=== PATIENT | male | born 1965 | race Caucasian/White ===

== ENCOUNTER 2024-03-18 12:43 | Inpatient (IN) | payer OTHER ==
[2024-03-18 12:58] VITALS: BMI 22.1
[2024-03-18] MEDS ORDERED: diazePAM 5 MG TABLET PO PRN (15:41)
[2024-03-18] MEDS ORDERED: NALOXONE (NARCAN) HCL 4 MG/0.1 ML SPRAY NS PRN (15:44)
[2024-03-18] MEDS ORDERED: IBUPROFEN 400 MG TABLET (FP) PO PRN (15:44)
[2024-03-18] MEDS ORDERED: DICYCLOMINE HCL 10 MG CAPSULE PO PRN (15:44)
[2024-03-18] MEDS ORDERED: BENZOCAINE/MENTHOL (CHLORASEPTIC ) LOZENGE MM PRN (15:44)
[2024-03-18] MEDS ORDERED: ONDANSETRON *ODT* 4 MG TABLET SL PRN (15:44)
[2024-03-18] MEDS ORDERED: POLYETHYLENE GLYCOL (HEALTHYLAX) 3350 17 GM PACKET PO PRN (15:44)
[2024-03-18] MEDS ORDERED: METHOCARBAMOL 500 MG TABLET PO PRN (15:44)
[2024-03-18] MEDS ORDERED: MAGNESIUM HYDROX 2400MG/30ML ORAL SUSPENSION 30 ML CUP PO PRN (15:44)
[2024-03-18] MEDS ORDERED: BENZONATATE 200 MG CAPSULE PO PRN (15:44)
[2024-03-18] MEDS ORDERED: guaiFENesin 600 MG TABLET.ER (FP) PO PRN (15:44)
[2024-03-18] MEDS: metFORMIN HCL 500 MG TABLET (FP) PO SCH (17:35)
[2024-03-18] MEDS: diazePAM 5 MG TABLET PO SCH (17:36)
[2024-03-18] MEDS: THIAMINE 100 MG TABLET PO SCH (22:28)
[2024-03-18] MEDS: MELATONIN 5 MG TABLETS PO SCH (22:28)
[2024-03-18] MEDS: GABAPENTIN 300 MG CAPSULE PO SCH (22:28)
[2024-03-19] MEDS: BICTEGRAV/EMTRICIT/TENOFOV (BIKTARVY) 50-200-25 MG TABLET PO SCH (07:06)
[2024-03-19] MEDS: PRENATAL VITAMINS W/ FOLIC ACID TABLET (FP) PO SCH (09:28)
[2024-03-19] MEDS: NICOTINE 14 MG/24 HOURS TOPICAL PATCH TD SCH (09:29)
[2024-03-19] MEDS ORDERED: methaDONE HCL 10 MG TABLET PO ONE (09:32)
[2024-03-19 11:21] LABS: HEMATOCRIT 34.8 % (35.4-49); HEMOGLOBIN 11.4 GM/dL (11.7-16.9); MCH 29.6 pg (25.7-33.7); MCHC 32.6 g/dl (32.0-35.9); MEAN CELL VOLUME 90.7 fl (80-96); MEAN PLT VOLUME 8.9 fl (7.5-11.1); PLATELET COUNT 143 10^3/uL (134-434); RBC 3.84 M/mm3 (4.00-5.60); WHITE BLOOD COUNT 2.6 K/mm3 (4.0-10.0)
[2024-03-19 11:22] LABS: CHLORIDE 99 mmol/L (98-107); SODIUM 133 mmol/L (136-145)
[2024-03-19 11:24] LABS: CALCIUM 8.2 mg/dL (8.5-10.1)
[2024-03-19 11:25] LABS: ALBUMIN 2.7 g/dl (3.4-5.0); ANION GAP 5 mmol/L (4-13); BLOOD UREA NITROGEN 5.4 mg/dL (7-18); CO2 28 mmol/L (21-32); GLUCOSE,RANDOM 117 mg/dL (74-106)
[2024-03-19 11:28] LABS: CREATININE 0.4 mg/dL (0.55-1.3); SGOT/AST 304 U/L (15-37); SGPT/ALT 89 U/L (13-61)
[2024-03-19 11:30] LABS: TOT PROT 5.7 g/dl (6.4-8.2)
[2024-03-19 11:31] LABS: ALK PHOS 143 U/L (45-117)
[2024-03-19] MEDS: SUVOREXANT 10 MG TABLET PO PRN (22:28)
[2024-03-19] MEDS: hydrOXYzine PAMOATE 25 MG CAPSULE (FP) PO PRN (22:29)
[2024-03-20] MEDS: diazePAM 5 MG TABLET PO SCH (05:43)
[2024-03-20] MEDS ORDERED: methaDONE HCL 10 MG TABLET PO SCH (06:00)
[2024-03-20] MEDS: LOPERAMIDE HCL 2 MG CAPSULE PO PRN (21:42)
[2024-03-21] MEDS: diazePAM 5 MG TABLET PO SCH (05:25)
[2024-03-21 10:30] LABS: BASO % 0.6 % (0-2.0); EOS % 7.3 % (0-4.5); HEMATOCRIT 36.6 % (35.4-49); HEMOGLOBIN 11.9 GM/dL (11.7-16.9); LYMPH % 13.7 % (8-40); MCHC 32.5 g/dl (32.0-35.9); MEAN CELL VOLUME 92.2 fl (80-96); MEAN PLT VOLUME 9.1 fl (7.5-11.1); MONO % 11.2 % (3.8-10.2); NEUT % 67.2 % (42.8-82.8); PLATELET COUNT 199 10^3/uL (134-434); RBC 3.97 M/mm3 (4.00-5.60); WHITE BLOOD COUNT 4.2 K/mm3 (4.0-10.0)
[2024-03-21] MEDS: NALOXONE (NYS OPIOID OVERDOSE PROGRAM) 4 MG/0.1 ML SPRAY NS SCH (12:42)
[2024-03-21] MEDS: VITAMINS A AND D TOPICAL OINTMENT TP SCH (12:49)
[2024-03-21] MEDS: BISMUTH SUBSALICYLATE 524 MG/30 ML PO PRN (17:11)
[2024-03-22] MEDS: diazePAM 5 MG TABLET PO ONE (05:33)
[2024-03-24] MEDS: NALOXONE (NYS OPIOID OVERDOSE PROGRAM) 4 MG/0.1 ML SPRAY NS ONE (13:38)
[2024-03-24] MEDS: ACETAMINOPHEN 325 MG TABLET (FP) PO PRN (17:36)
[2024-03-24] MEDS: SUVOREXANT 10 MG TABLET PO PRN (21:21)
[2024-03-24] MEDS ORDERED: SUVOREXANT 10 MG TABLET PO PRN (22:00)
[2024-03-25] MEDS: MAG HYDROX/AL HYDROX/SIMETH 30 ML UNIT-DOSE CUP PO PRN (13:46)
[2024-03-25] MEDS: IBUPROFEN 600 MG TABLET (FP) PO PRN (21:17)
[2024-03-26 15:47] VITALS: BP 108/59; PULSE 81; RESP 18; TEMP 97.7
[2024-03-26] MEDS ORDERED: SUVOREXANT 10 MG TABLET PO PRN (22:00)
== END 2024-03-26 16:10 | disposition short-term general hospital (02) | DRG 895 ==
LOC: YASAS 12:43 → Y6N 15:10 → Y3NR 03-22 13:03 → Y3W 03-23 13:50
PROVIDERS: ADMIT Surgery; ATTEND Psychiatry & Neurology Pain Medicine
PROC: HZ42ZZZ Group Counseling for Substance Abuse Treatment, Cognitive-Behavioral (ICD-10-PCS; principal; 2024-03-18)
DX: F10.20 Alcohol dependence, uncomplicated (principal); F11.20 Opioid dependence, uncomplicated; F13.20 Sedative, hypnotic or anxiolytic dependence, uncomplicated; F14.20 Cocaine dependence, uncomplicated; F19.282 Other psychoactive substance dependence with psychoactive substance-induced sleep disorder; F19.280 Other psychoactive substance dependence with psychoactive substance-induced anxiety disorder; L03.115 Cellulitis of right lower limb; F19.24 Other psychoactive substance dependence with psychoactive substance-induced mood disorder; F17.210 Nicotine dependence, cigarettes, uncomplicated; Z21 Asymptomatic human immunodeficiency virus [HIV] infection status; G47.00 Insomnia, unspecified; G62.9 Polyneuropathy, unspecified; E11.9 Type 2 diabetes mellitus without complications; Z79.84 Long term (current) use of oral hypoglycemic drugs
CPT/HCPCS: 36415; 80053; 80305; 80307; 82962; 84450; 85025; 85027; 86780; 87811; 93005; 93010

== ENCOUNTER 2024-03-26 16:25 | Inpatient (IN) | payer OTHER ==
[2024-03-26] MEDS ORDERED: ACETAMINOPHEN INJECTION 100 ML ONE (18:03)
[2024-03-26] MEDS ORDERED: VANCOMYCIN/WATER 1250 MG 1,250 MG/250 ML BAG IVPB ONE (18:03)
[2024-03-26 18:06] LABS: BASO % 0.1 % (0-2.0); EOS % 0.8 % (0-4.5); HEMATOCRIT 33.7 % (35.4-49); HEMOGLOBIN 11.2 GM/dL (11.7-16.9); LYMPH % 7.3 % (8-40); MCH 29.7 pg (25.7-33.7); MCHC 33.3 g/dl (32.0-35.9); MEAN CELL VOLUME 89.1 fl (80-96); MEAN PLT VOLUME 8.2 fl (7.5-11.1); MONO % 8.5 % (3.8-10.2); NEUT % 83.3 % (42.8-82.8); PLATELET COUNT 195 10^3/uL (134-434); RBC 3.78 M/mm3 (4.00-5.60); RDW 15.8 % (11.9-15.9); WHITE BLOOD COUNT 8.9 K/mm3 (4.0-10.0)
[2024-03-26 18:13] LABS: INR 1.08 (0.83-1.09); PROTHROMBIN TIME (PATIENT) 12.2 SEC (9.7-13.0)
[2024-03-26] MEDS: VANCOMYCIN/WATER 1250 MG 1,250 MG/250 ML BAG IVPB ONE (18:16)
[2024-03-26] MEDS: ACETAMINOPHEN 1000 MG/100 ML BAG IVPB ONE (18:16)
[2024-03-26 18:27] LABS: BLOOD UREA NITROGEN 11.7 mg/dL (7-18); CALCIUM 8.3 mg/dL (8.5-10.1)
[2024-03-26 18:28] LABS: ALBUMIN 2.5 g/dl (3.4-5.0)
[2024-03-26 18:31] LABS: CREATININE 0.6 mg/dL (0.55-1.3)
[2024-03-26 18:32] LABS: BILIRUBIN,TOTAL 0.7 mg/dL (0.2-1)
[2024-03-26 18:40] LABS: LACTIC ACID 3.7 mmol/L (0.4-2.0)
[2024-03-26] MEDS: LACTATED RINGERS SOLUTION 1000 ML INFUS.BAG IV ONE (20:23)
[2024-03-26] MEDS ORDERED: KETOROLAC TROMETHAMINE 15 MG/ML VIAL ONE ×2 (22:24→22:28)
[2024-03-26] MEDS: KETOROLAC TROMETHAMINE 15 MG/ML VIAL IVPUSH ONE (22:30)
[2024-03-26] MEDS: SODIUM CHLORIDE 0.9% 500 ML INFUS.BAG IV ONE (22:30)
[2024-03-26] MEDS: INSULIN ASPART SLIDING SCALE (NOVOLOG) 1 VIAL SQ SCH (22:44)
[2024-03-26 23:35] VITALS: BMI 23.1
[2024-03-27] MEDS ORDERED: SUVOREXANT 10 MG TABLET PO PRN (01:25)
[2024-03-27] MEDS: PIPERACILLIN/TAZOB 3.375 GM 50 ML IVPB SCH ×2 (02:17→18:19)
[2024-03-27] MEDS: SODIUM CHLORIDE 1,000 ML IV SCH (02:17)
[2024-03-27] MEDS: ACETAMINOPHEN 1000 MG/100 ML BAG IVPB PRN (03:40)
[2024-03-27 03:53] LABS: LACTIC ACID 2.7 mmol/L (0.4-2.0)
[2024-03-27 03:54] LABS: POTASSIUM 4.3 mmol/L (3.5-5.1)
[2024-03-27 03:57] LABS: ALBUMIN 2.2 g/dl (3.4-5.0); CALCIUM 7.7 mg/dL (8.5-10.1)
[2024-03-27 03:58] LABS: BLOOD UREA NITROGEN 9.7 mg/dL (7-18)
[2024-03-27 04:01] LABS: BILIRUBIN,TOTAL 0.5 mg/dL (0.2-1); CREATININE 0.5 mg/dL (0.55-1.3); TOT PROT 5.2 g/dl (6.4-8.2)
[2024-03-27] MEDS: GABAPENTIN 300 MG CAPSULE PO SCH (05:29)
[2024-03-27] MEDS ORDERED: VANCOMYCIN 1,000 MG in DEXTROSE 5%-WATER - 250 ML IVPB SCH (08:00)
[2024-03-27] MEDS: THIAMINE 100 MG TABLET PO SCH (09:06)
[2024-03-27] MEDS: FOLIC ACID 1 MG TABLET (FP) PO SCH (09:06)
[2024-03-27] MEDS: ENOXAPARIN NA (PORCINE) 40 MG/0.4 ML DISP.SYRIN SQ SCH (09:07)
[2024-03-27] MEDS: BICTEGRAV/EMTRICIT/TENOFOV (BIKTARVY) 50-200-25 MG TABLET PO SCH (09:07)
[2024-03-27] MEDS: methaDONE HCL 40 MG DISPERSABLE TABLET PO SCH (09:17)
[2024-03-27 09:44] LABS: BASO % 0.1 % (0-2.0); EOS % 1.1 % (0-4.5); HEMATOCRIT 32.4 % (35.4-49); HEMOGLOBIN 10.9 GM/dL (11.7-16.9); LYMPH % 5.6 % (8-40); MCH 30.2 pg (25.7-33.7); MCHC 33.5 g/dl (32.0-35.9); MEAN CELL VOLUME 90.2 fl (80-96); MEAN PLT VOLUME 8.6 fl (7.5-11.1); MONO % 9.1 % (3.8-10.2); NEUT % 84.1 % (42.8-82.8); PLATELET COUNT 182 10^3/uL (134-434); RBC 3.59 M/mm3 (4.00-5.60); WHITE BLOOD COUNT 7.1 K/mm3 (4.0-10.0)
[2024-03-27 09:51] LABS: POTASSIUM 4.2 mmol/L (3.5-5.1)
[2024-03-27 09:58] LABS: ALBUMIN 2.3 g/dl (3.4-5.0); BLOOD UREA NITROGEN 8.1 mg/dL (7-18); MAGNESIUM 2.1 mg/dL (1.8-2.4)
[2024-03-27] MEDS ORDERED: VANCOMYCIN/WATER FOR INJ (PEG) 1,000 MG/200 ML BAG IVPB SCH (10:00)
[2024-03-27 10:02] LABS: CREATININE 0.5 mg/dL (0.55-1.3); PHOSPHOROUS 2.9 mg/dL (2.5-4.9)
[2024-03-27 10:03] LABS: BILIRUBIN,TOTAL 0.7 mg/dL (0.2-1); TOT PROT 5.7 g/dl (6.4-8.2)
[2024-03-27 10:20] LABS: LACTIC ACID 2.4 mmol/L (0.4-2.0)
[2024-03-27] MEDS: VANCOMYCIN/WATER FOR INJ (PEG) 1 GM/200 ML BAG IVPB SCH (15:03)
[2024-03-27] MEDS: PIPERACILLIN/TAZOB 3.375 GM 3.375 GM in DEXTROSE 5%-WATER - 50 ML IVPB SCH (15:07)
[2024-03-27] MEDS ORDERED: KETOROLAC TROMETHAMINE 30 MG/1 ML VIAL IVPUSH PRN (16:22)
[2024-03-27] MEDS: ACETAMINOPHEN 325 MG TABLET (FP) PO SCH (18:13)
[2024-03-27] MEDS: KETOROLAC TROMETHAMINE 30 MG/1 ML VIAL IVPUSH PRN (18:18)
[2024-03-27] MEDS: QUEtiapine FUMARATE 50 MG TABLET PO SCH (22:16)
[2024-03-28 07:42] LABS: BASO % 0.5 % (0-2.0); EOS % 2.8 % (0-4.5); HEMATOCRIT 32.6 % (35.4-49); HEMOGLOBIN 10.8 GM/dL (11.7-16.9); LYMPH % 8.6 % (8-40); MCHC 33.1 g/dl (32.0-35.9); MEAN CELL VOLUME 90.8 fl (80-96); MEAN PLT VOLUME 8.5 fl (7.5-11.1); MONO % 9.4 % (3.8-10.2); NEUT % 78.7 % (42.8-82.8); PLATELET COUNT 204 10^3/uL (134-434); RBC 3.59 M/mm3 (4.00-5.60); RDW 16.1 % (11.9-15.9); WHITE BLOOD COUNT 5.8 K/mm3 (4.0-10.0)
[2024-03-28 07:48] LABS: POTASSIUM 4.4 mmol/L (3.5-5.1)
[2024-03-28 07:59] LABS: ALBUMIN 2.2 g/dl (3.4-5.0); BLOOD UREA NITROGEN 7.9 mg/dL (7-18); MAGNESIUM 2.2 mg/dL (1.8-2.4)
[2024-03-28 08:02] LABS: CREATININE 0.5 mg/dL (0.55-1.3)
[2024-03-28 08:04] LABS: BILIRUBIN,TOTAL 0.9 mg/dL (0.2-1); TOT PROT 5.6 g/dl (6.4-8.2)
[2024-03-29 09:22] LABS: POTASSIUM 4.3 mmol/L (3.5-5.1)
[2024-03-29 09:23] LABS: BASO % 0.1 % (0-2.0); EOS % 2.8 % (0-4.5); HEMATOCRIT 28.7 % (35.4-49); HEMOGLOBIN 9.8 GM/dL (11.7-16.9); LYMPH % 6.4 % (8-40); MCH 30.4 pg (25.7-33.7); MCHC 34.1 g/dl (32.0-35.9); MEAN PLT VOLUME 8.2 fl (7.5-11.1); MONO % 7.2 % (3.8-10.2); NEUT % 83.5 % (42.8-82.8); PLATELET COUNT 212 10^3/uL (134-434); RBC 3.22 M/mm3 (4.00-5.60); RDW 15.6 % (11.9-15.9); WHITE BLOOD COUNT 6.2 K/mm3 (4.0-10.0)
[2024-03-29 09:38] LABS: CALCIUM 7.8 mg/dL (8.5-10.1)
[2024-03-29 09:39] LABS: MAGNESIUM 2.1 mg/dL (1.8-2.4)
[2024-03-29 09:40] LABS: BLOOD UREA NITROGEN 8.5 mg/dL (7-18)
[2024-03-29 09:42] LABS: CREATININE 0.6 mg/dL (0.55-1.3)
[2024-03-29 09:44] LABS: BILIRUBIN,TOTAL 0.9 mg/dL (0.2-1); TOT PROT 5.2 g/dl (6.4-8.2)
[2024-03-30 08:36] LABS: BASO % 0.4 % (0-2.0); EOS % 3.1 % (0-4.5); HEMATOCRIT 30.5 % (35.4-49); LYMPH % 10.1 % (8-40); MCH 29.7 pg (25.7-33.7); MCHC 32.7 g/dl (32.0-35.9); MEAN CELL VOLUME 90.6 fl (80-96); MEAN PLT VOLUME 7.8 fl (7.5-11.1); MONO % 8.3 % (3.8-10.2); NEUT % 78.1 % (42.8-82.8); PLATELET COUNT 247 10^3/uL (134-434); RBC 3.36 M/mm3 (4.00-5.60); RDW 16.4 % (11.9-15.9); WHITE BLOOD COUNT 5.9 K/mm3 (4.0-10.0)
[2024-03-30 08:56] LABS: POTASSIUM 4.8 mmol/L (3.5-5.1)
[2024-03-30 08:59] LABS: BLOOD UREA NITROGEN 7.7 mg/dL (7-18); MAGNESIUM 2.1 mg/dL (1.8-2.4)
[2024-03-30 09:02] LABS: CREATININE 0.6 mg/dL (0.55-1.3)
[2024-03-30 09:03] LABS: BILIRUBIN,TOTAL 0.8 mg/dL (0.2-1); TOT PROT 5.5 g/dl (6.4-8.2)
[2024-03-30] MEDS: SULFAMETHOXAZOLE/TRIMETHOPRIM 800MG/160MG D.S. TABLET PO SCH (10:32)
[2024-03-30] MEDS: CLINDAMYCIN 600MG PREMIX IVPB 600 MG/50 ML BAG IVPB ONE (12:21)
[2024-03-31 08:24] LABS: BASO % 0.3 % (0-2.0); EOS % 3.2 % (0-4.5); HEMATOCRIT 30.2 % (35.4-49); HEMOGLOBIN 9.8 GM/dL (11.7-16.9); LYMPH % 10.3 % (8-40); MCH 29.3 pg (25.7-33.7); MCHC 32.4 g/dl (32.0-35.9); MEAN CELL VOLUME 90.5 fl (80-96); MEAN PLT VOLUME 7.6 fl (7.5-11.1); MONO % 9.8 % (3.8-10.2); NEUT % 76.4 % (42.8-82.8); PLATELET COUNT 265 10^3/uL (134-434); RBC 3.33 M/mm3 (4.00-5.60); WHITE BLOOD COUNT 4.2 K/mm3 (4.0-10.0)
[2024-03-31 08:47] LABS: POTASSIUM 4.7 mmol/L (3.5-5.1)
[2024-03-31 08:54] LABS: CALCIUM 8.1 mg/dL (8.5-10.1)
[2024-03-31 08:55] LABS: BLOOD UREA NITROGEN 9.6 mg/dL (7-18); MAGNESIUM 2.1 mg/dL (1.8-2.4)
[2024-03-31 08:58] LABS: CREATININE 0.5 mg/dL (0.55-1.3)
[2024-03-31 09:00] LABS: BILIRUBIN,TOTAL 0.6 mg/dL (0.2-1); TOT PROT 5.4 g/dl (6.4-8.2)
[2024-04-01 08:16] LABS: BASO % 0.5 % (0-2.0); EOS % 4.9 % (0-4.5); HEMATOCRIT 30.9 % (35.4-49); HEMOGLOBIN 10.4 GM/dL (11.7-16.9); LYMPH % 16.4 % (8-40); MCH 30.4 pg (25.7-33.7); MCHC 33.8 g/dl (32.0-35.9); MEAN PLT VOLUME 7.4 fl (7.5-11.1); MONO % 11.5 % (3.8-10.2); NEUT % 66.7 % (42.8-82.8); PLATELET COUNT 291 10^3/uL (134-434); RBC 3.43 M/mm3 (4.00-5.60); RDW 15.6 % (11.9-15.9)
[2024-04-01 08:37] LABS: POTASSIUM 4.6 mmol/L (3.5-5.1)
[2024-04-01 08:44] LABS: CALCIUM 7.9 mg/dL (8.5-10.1)
[2024-04-01 08:45] LABS: BLOOD UREA NITROGEN 9.6 mg/dL (7-18); MAGNESIUM 2.1 mg/dL (1.8-2.4)
[2024-04-01 08:48] LABS: CREATININE 0.6 mg/dL (0.55-1.3)
[2024-04-01 08:49] LABS: BILIRUBIN,TOTAL 0.6 mg/dL (0.2-1); TOT PROT 5.8 g/dl (6.4-8.2)
[2024-04-01 22:26] VITALS: RESP 18
[2024-04-02] MEDS ORDERED: INSULIN ASPART SLIDING SCALE (NOVOLOG) 1 VIAL SQ ONE (07:30)
[2024-04-02 07:42] VITALS: TEMP 98.2
[2024-04-02 08:52] LABS: BASO % 0.7 % (0-2.0); EOS % 3.6 % (0-4.5); HEMATOCRIT 31.4 % (35.4-49); HEMOGLOBIN 10.2 GM/dL (11.7-16.9); LYMPH % 15.2 % (8-40); MCH 29.2 pg (25.7-33.7); MCHC 32.5 g/dl (32.0-35.9); MEAN CELL VOLUME 90.1 fl (80-96); MEAN PLT VOLUME 7.4 fl (7.5-11.1); MONO % 10.6 % (3.8-10.2); NEUT % 69.9 % (42.8-82.8); PLATELET COUNT 277 10^3/uL (134-434); RBC 3.48 M/mm3 (4.00-5.60); RDW 15.8 % (11.9-15.9); WHITE BLOOD COUNT 4.4 K/mm3 (4.0-10.0)
[2024-04-02 09:15] LABS: POTASSIUM 4.3 mmol/L (3.5-5.1)
[2024-04-02 09:17] LABS: BLOOD UREA NITROGEN 8.8 mg/dL (7-18); MAGNESIUM 2.2 mg/dL (1.8-2.4)
[2024-04-02 09:21] LABS: ALBUMIN 2.1 g/dl (3.4-5.0); CREATININE 0.6 mg/dL (0.55-1.3)
[2024-04-02 09:22] LABS: BILIRUBIN,TOTAL 0.5 mg/dL (0.2-1); TOT PROT 5.9 g/dl (6.4-8.2)
[2024-04-02 10:10] VITALS: BP 121/66; PULSE 79
== END 2024-04-02 10:46 | disposition other institution (70) | DRG 603 ==
LOC: JER 16:25 → JERBED 20:31 → J7W 23:21 → OBSVTOIN 03-27 08:17 → J7W 03-28 00:48
PROVIDERS: ADMIT Internal Medicine
DX: L03.115 Cellulitis of right lower limb (principal); B20 Human immunodeficiency virus [HIV] disease; E11.40 Type 2 diabetes mellitus with diabetic neuropathy, unspecified; F11.10 Opioid abuse, uncomplicated; E11.65 Type 2 diabetes mellitus with hyperglycemia; K21.9 Gastro-esophageal reflux disease without esophagitis
CPT/HCPCS: 36415; 73590-TC-RT-FY; 73610-TC-RT-FY; 73630-TC-RT-FY; 73701-TC-RT; 76882-TC-RT; 80053; 82550; 82962; 83036; 83605; 83735; 84100; 85025; 85610; 85651; 85730; 86140; 86359; 86360; 87040; 87081; 93005; 93010; 93971-TC; 97116-GP; 97161-GP; 99285-25; G0378; G0480; J0131; Q9967

== ENCOUNTER 2024-04-02 11:21 | Inpatient (IN) | payer OTHER ==
[2024-04-02] MEDS ORDERED: NALOXONE (NARCAN) HCL 4 MG/0.1 ML SPRAY NS PRN (11:38)
[2024-04-02] MEDS ORDERED: LOPERAMIDE HCL 2 MG CAPSULE PO PRN (11:38)
[2024-04-02] MEDS ORDERED: MAGNESIUM HYDROX 2400MG/30ML ORAL SUSPENSION 30 ML CUP PO PRN (11:38)
[2024-04-02] MEDS ORDERED: hydrOXYzine PAMOATE 25 MG CAPSULE (FP) PO PRN (11:38)
[2024-04-02] MEDS ORDERED: BENZOCAINE/MENTHOL (CHLORASEPTIC ) LOZENGE MM PRN (11:38)
[2024-04-02] MEDS ORDERED: guaiFENesin 600 MG TABLET.ER (FP) PO PRN (11:38)
[2024-04-02] MEDS ORDERED: MAG HYDROX/AL HYDROX/SIMETH 30 ML UNIT-DOSE CUP PO PRN (11:38)
[2024-04-02] MEDS ORDERED: POLYETHYLENE GLYCOL (HEALTHYLAX) 3350 17 GM PACKET PO PRN (11:38)
[2024-04-02] MEDS ORDERED: BENZONATATE 200 MG CAPSULE PO PRN (11:38)
[2024-04-02 11:40] VITALS: BMI 22.1
[2024-04-02] MEDS: AMOX TR/POT CLAV 875MG/125MG TABLETS (FP) PO SCH (15:10)
[2024-04-02] MEDS: GABAPENTIN 300 MG CAPSULE PO SCH (15:11)
[2024-04-02] MEDS: ACETAMINOPHEN 325 MG TABLET (FP) PO PRN (15:34)
[2024-04-02] MEDS: metFORMIN HCL 500 MG TABLET (FP) PO SCH (16:33)
[2024-04-02] MEDS: IBUPROFEN 600 MG TABLET (FP) PO PRN (20:50)
[2024-04-02] MEDS: QUEtiapine FUMARATE 50 MG TABLET PO SCH (21:31)
[2024-04-02] MEDS: MELATONIN 5 MG TABLETS PO SCH (21:31)
[2024-04-02] MEDS: THIAMINE 100 MG TABLET PO SCH (21:31)
[2024-04-03] MEDS: BICTEGRAV/EMTRICIT/TENOFOV (BIKTARVY) 50-200-25 MG TABLET PO SCH (07:05)
[2024-04-03] MEDS ORDERED: methaDONE HCL 40 MG DISPERSABLE TABLET PO SCH (10:00)
[2024-04-03] MEDS: PRENATAL VITAMINS W/ FOLIC ACID TABLET (FP) PO SCH (10:20)
[2024-04-03] MEDS: VITAMINS A AND D TOPICAL OINTMENT TP SCH (13:07)
[2024-04-03] MEDS: GABAPENTIN 400 MG CAPSULE PO SCH (13:14)
[2024-04-04] MEDS: SULFAMETHOXAZOLE/TRIMETHOPRIM 800MG/160MG D.S. TABLET PO SCH (10:05)
[2024-04-06] MEDS: IBUPROFEN 400 MG TABLET (FP) PO PRN (21:22)
[2024-04-14 07:19] VITALS: RESP 17
[2024-04-15 06:22] VITALS: TEMP 97.5
[2024-04-16 06:17] VITALS: BP 139/75; PULSE 81
[2024-04-16] MEDS ORDERED: NALOXONE (NYS OPIOID OVERDOSE PROGRAM) 4 MG/0.1 ML SPRAY NS PRN (10:00)
== END 2024-04-16 09:22 | disposition home or self-care (01) | DRG 895 ==
LOC: YASAS 11:21 → Y3W 14:34
PROVIDERS: ADMIT Allergy & Immunology; ATTEND Psychiatry & Neurology Pain Medicine
PROC: HZ42ZZZ Group Counseling for Substance Abuse Treatment, Cognitive-Behavioral (ICD-10-PCS; principal; 2024-04-02)
DX: F11.20 Opioid dependence, uncomplicated (principal); F14.20 Cocaine dependence, uncomplicated; F13.20 Sedative, hypnotic or anxiolytic dependence, uncomplicated; L03.115 Cellulitis of right lower limb; F19.282 Other psychoactive substance dependence with psychoactive substance-induced sleep disorder; F19.280 Other psychoactive substance dependence with psychoactive substance-induced anxiety disorder; F19.24 Other psychoactive substance dependence with psychoactive substance-induced mood disorder; F17.210 Nicotine dependence, cigarettes, uncomplicated; F10.20 Alcohol dependence, uncomplicated; Z21 Asymptomatic human immunodeficiency virus [HIV] infection status; G62.9 Polyneuropathy, unspecified; E11.9 Type 2 diabetes mellitus without complications
CPT/HCPCS: 82962